=== PATIENT | female | born 2000 | race Caucasian/White ===

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

== ENCOUNTER 2020-01-12 13:46 | Emergency (ER) | payer MEDICAID ==
[~2020-01-12] VITALS: Ht 162.6 cm; Wt 104.5 kg
[2020-01-12 13:50] VITALS: BP 120/78; Ht 162.6 cm; Wt 104.5 kg
== END 2020-01-12 14:25 | disposition left against medical advice (07) ==
LOC: D.ER 13:46
DX: O26.892 Other specified pregnancy related conditions, second trimester (principal); Z3A.24 24 weeks gestation of pregnancy; R10.30 Lower abdominal pain, unspecified; Y04.8XXA Assault by other bodily force, initial encounter; Y93.9 Activity, unspecified; Y92.9 Unspecified place or not applicable; Z53.29 Procedure and treatment not carried out because of patient's decision for other reasons

== ENCOUNTER 2020-02-04 07:27 | Outpatient (CLI) | payer MEDICAID ==
[2020-01-12 13:50] VITALS: BMI 39.5
[2020-02-04 08:56] LABS: UDS - AMPHET NEGATIVE QUAL (NEGATIVE); UDS - BARB NEGATIVE QUAL (NEGATIVE); UDS - BENZO NEGATIVE QUAL (NEGATIVE); UDS - COCAINE NEGATIVE QUAL (NEGATIVE); UDS - OPIATE NEGATIVE QUAL (NEGATIVE); UDS - PCP NEGATIVE QUAL (NEGATIVE); UDS - THC NEGATIVE QUAL (NEGATIVE)
[2020-02-04 09:04] LABS: BILIRUBIN NEGATIVE (NEGATIVE); KETONE NEGATIVE (NEGATIVE); NITRITE NEGATIVE (NEGATIVE); UROBILINOGEN NORMAL mg/dL (< 2)
== END 2020-02-04 09:37 | disposition home or self-care (01) ==
LOC: D.LDO 07:27
PROVIDERS: ATTEND Obstetrics & Gynecology
DX: O26.893 Other specified pregnancy related conditions, third trimester (principal); Z3A.27 27 weeks gestation of pregnancy; R51.9 Headache, unspecified; R10.9 Unspecified abdominal pain

== ENCOUNTER 2020-02-14 12:34 | Outpatient (CLI) | payer MEDICAID ==
[2020-01-12 13:50] VITALS: BMI 39.5
[2020-02-14 14:02] LABS: BACTERIA MANY HPF (NONE SEEN); BILIRUBIN NEGATIVE (NEGATIVE); EPITHELIAL CELLS 0-5 /hpf (0-5); KETONE NEGATIVE (NEGATIVE); NITRITE NEGATIVE (NEGATIVE); UROBILINOGEN NORMAL mg/dL (< 2); WHITE CELLS - URINE 0-5 HPF (0-4)
== END 2020-02-14 14:53 | disposition home or self-care (01) ==
LOC: D.LDO 12:34
PROVIDERS: ATTEND Student in an Organized Health Care Education/Training Program
DX: O26.899 Other specified pregnancy related conditions, unspecified trimester (principal); Z3A.00 Weeks of gestation of pregnancy not specified; R31.9 Hematuria, unspecified

== ENCOUNTER 2020-08-26 22:46 | Emergency (ER) | payer MEDICAID ==
[~2020-08-26] VITALS: Ht 162.6 cm; Wt 120.5 kg
[~2020-08-26 22:46] MED LIST changes: +BUPROPION HCL150 M1 PO; +FLOVENT DISKU100 MCG; +PRENAVITE1 TAB PO; +PROAIR HFA8.5 G1
[2020-08-26 22:54] VITALS: Ht 162.6 cm; Wt 120.5 kg
[2020-08-26] MEDS ORDERED: PEPCID AC20 MG PO (22:57)
[2020-08-26] MEDS ORDERED: CELEXA40 MG PO (22:57)
[2020-08-26 23:51] LABS: HCG URINE NEGATIVE (NEGATIVE)
[2020-08-27] MEDS ORDERED: CYCLOBENZAPRINE10 MG PO (01:26)
[2020-08-27 01:53] VITALS: BP 106/58
== END 2020-08-27 01:54 | disposition home or self-care (01) ==
LOC: D.ER 22:46
PROVIDERS: Family Medicine
DX: S20.219A Contusion of unspecified front wall of thorax, initial encounter (principal); V89.2XXA Person injured in unspecified motor-vehicle accident, traffic, initial encounter; S29.019A Strain of muscle and tendon of unspecified wall of thorax, initial encounter; R07.89 Other chest pain; J45.909 Unspecified asthma, uncomplicated